=== PATIENT | female | born 1995 | race American Indian/Alaskan Native ===

== ENCOUNTER 2020-08-10 13:12 | Emergency (ER) | payer SELFPAY ==
[2020-08-10 13:29] VITALS: BP 126/81
--- NOTE | 2020-08-10 14:18 | XRay Report ---
LEFT THUMB 3 VIEW INDICATION / CLINICAL INFORMATION: Left thumb injury. COMPARISON: None available. FINDINGS: BONES/JOINT(S): There is a displaced avulsion fracture of the ulnar aspect of the base of the thumb p roximal phalanx. This would be equivalent to an osseous "gamekeeper's thumb" type injury. SOFT TISSUES: No significant abnormality. ADDITIONAL FINDINGS: None. Signer Name: Rm Joyce MD Signed: 08/10/2020 2:13 PM Workstation Name: [id number]
[2020-08-10] MEDS ORDERED: IBUPROFEN 600 MG TAB PO ONE (14:39)
--- NOTE | 2020-08-10 15:16 | Emergency Department Report ---
ED Upper Extremity Inj HPI - General Chief Complaint: Extremity Injury, Upper Stated Complaint: LFT THUMB POSS BROKEN Time Seen by Provider: 08/10/20 14:30 Source: patient Mode of arrival: Ambulatory Limitations: No Limitations - History of Present Illness Initial Comments: Patient is a 25-year-old female who presents emergency room with complaints of a left thumb injury that occurred just prior to arrival. Patient states that she was taking out the trash and accidentally slipped over her flip-flop and fell to the ground and caught herself directly on her left thumb. Patient states that she did have an injury to this thumb once before when she was a child. She denies any numbness or weakness. She states that she has not been moving the thumb secondary to pain. She has a past medical history of sickle cell trait. She denies any allergies to medications. She states her last menstrual cycle was August 03. - Related Data Previous Rx's Medication Instructions Recorded Last Taken Type Acetaminophen/Codeine [Tylenol 1 tab PO Q6H PRN #10 tab 08/10/20 Unknown Rx /Codeine # 3 tab] Ibuprofen [Motrin 600 MG tab] 600 mg PO Q8H PRN #14 tablet 08/10/20 Unknown Rx Allergies Allergy/AdvReac Type Severity Reaction Status Date / Time No Known Allergies Allergy Unverified 08/10/20 13:30 ED Review of Systems ROS: Stated complaint: LFT THUMB POSS BROKEN Other details as noted in HPI Comment: All other systems reviewed and negative ED Past Medical Hx - Past Medical History Previous Medical History?: Yes Additional medical history: Sickle Cell trait - Surgical History Past Surgical History?: No - Medications Home Medications: Home Medications Medication Instructions Recorded Confirmed Last Taken Type Acetaminophen/Codeine [Tylenol 1 tab PO Q6H PRN #10 tab 08/10/20 Unknown Rx /Codeine # 3 tab] Ibuprofen [Motrin 600 MG tab] 600 mg PO Q8H PRN #14 tablet 08/10/20 Unknown Rx ED Physical Exam - General Limitations: No Limitations General appearance: alert, in no apparent distress - Head Head exam: Present: atraumatic, normocephalic - Eye Eye exam: Present: normal appearance - ENT ENT exam: Present: mucous membranes moist - Extremities Exam Extremities exam: Present: other (edema and ttp to the base of the left thumb, no snuffbox ttp, no wrist ttp, no other digit ttp, decreased ROM of the left thumb secondary to pain, neurovascularly intact) - Neurological Exam Neurological exam: Present: alert, oriented X3 - Psychiatric Psychiatric exam: Present: normal affect, normal mood - Skin Skin exam: Present: warm, dry, intact ED Course Vital Signs 08/10/20 08/10/20 08/10/20 13:28 15:00 16:00 Temperature 98.8 F Pulse Rate 72 Respiratory 16 18 18 Rate Blood Pressure 126/81 [Right] O2 Sat by Pulse 100 Oximetry ED Medical Decision Making - Radiology Data Radiology results: report reviewed LEFT THUMB 3 VIEW INDICATION / CLINICAL INFORMATION: Left thumb injury. COMPARISON: None available. FINDINGS: BONES/JOINT(S): There is a displaced avulsion fracture of the ulnar aspect of the base of the thumb proximal phalanx. This would be equivalent to an osseous "gamekeeper's thumb" type injury. SOFT TISSUES: No significant abnormality. ADDITIONAL FINDINGS: None. Signer Name: Rm Joyce MD Signed: 08/10/2020 2:13 PM Workstation Name: [id number] Transcribed By: ZOE Dictated By: Rm Joyce MD Electronically Authenticated By: Rm Joyce MD Signed Date/Time: 08/10/20 1413 DD/ 1408 TD/TT: - Medical Decision Making Patient is a 25-year-old female who presents emergency room with complaints of a left thumb injury that occurred just prior to arrival. Patient states that she was taking out the trash and accidentally slipped over her flip-flop and fell to the ground and caught herself directly on her left thumb. Patient states that she did have an injury to this thumb once before when she was a child. She denies any numbness or weakness. She states that she has not been moving the thumb secondary to pain. She has a past medical history of sickle cell trait. She denies any allergies to medications. She states her last menstrual cycle was August 03. Vitals are normal. On exam:edema and ttp to the base of the left thumb, no snuffbox ttp, no wrist ttp, no other digit ttp, decreased ROM of the left thumb secondary to pain, neurovascularly intact. XR left thumb: BONES/JOINT(S): There is a displaced avulsion fracture of the ulnar aspect of the base of the thumb proximal phalanx. This would be equivalent to an osseous "gamekeeper's thumb" type injury. SOFT TISSUES: No significant abnormality. ADDITIONAL FINDINGS: None. Patient given ibuprofen while in the emergency department as she drove. Discussed all results with patient. Patient placed in thumb spica splint by nurse and remained neurovascularly intact. Patient given prescription for ibuprofen and Tylenol with codeine. Advised patient Please take medication as prescribed. Do not drive or operate machinery or work while taking pain medication. Please do not remove splint. Follow-up with orthopedic doctor. It is very important that you follow-up. Return to emergency room for any new or worsening symptoms. - Differential Diagnosis strain, sprain, fx, dislocation Critical care attestation.: If time is entered above; I have spent that time in minutes in the direct care of this critically ill patient, excluding procedure time. ED Disposition Clinical Impression: Thumb fracture Qualifiers: Encounter type: initial encounter Fracture type: closed Phalanx: proximal Fracture alignment: displaced Laterality: left Qualified Code(s): S62.512A - Displaced fracture of proximal phalanx of left thumb, initial encounter for closed fracture Disposition: DC-01 TO HOME OR SELFCARE Is pt being admited?: No Does the pt Need Aspirin: No Condition: Stable Instructions: Thumb Fracture (ED) Additional Instructions: Please take medication as prescribed. Do not drive or operate machinery or work while taking pain medication. Please do not remove splint. Follow-up with orthopedic doctor. It is very important that you follow-up. Return to emergency room for any new or worsening symptoms. Prescriptions: Ibuprofen [Motrin 600 MG tab] 600 mg PO Q8H PRN #14 tablet PRN Reason: Pain, Moderate (4-6) Acetaminophen/Codeine [Tylenol /Codeine # 3 tab] 1 tab PO Q6H PRN #10 tab PRN Reason: Pain , Severe (7-10) Referrals: PRIMARY CAREMD [Primary Care Provider] - 2-3 Days CHIOMA TREVINO MD [Staff Physician] - 2-3 Days [facility] [Provider Group] - 2-3 Days Time of Disposition: 15:14 Print Language: [place]
== END 2020-08-10 17:18 | disposition home or self-care (01) ==
LOC: ED 13:12
DX: S62.512A Displaced fracture of proximal phalanx of left thumb, initial encounter for closed fracture (principal); Z79.899 Other long term (current) drug therapy; W18.30XA Fall on same level, unspecified, initial encounter; Y93.89 Activity, other specified; Y92.89 Other specified places as the place of occurrence of the external cause; Y99.8 Other external cause status
CPT/HCPCS: 99283